=== PATIENT | male | born 1990 | race African-American/Black ===

== ENCOUNTER 2021-02-26 11:14 | Emergency (ER) | payer MEDICAID, SELFPAY ==
[2021-02-26 11:40] VITALS: BP 122/69; PULSE 90; RESP 18; TEMP 36.8; O2SAT 98; BMI 22.9
[2021-02-26 13:04] VITALS: BP 126/76; PULSE 89; RESP 16; TEMP 37; O2SAT 98
--- NOTE | 2021-02-26 13:31 | ED_ITS ---
HPI - Alcohol General Chief Complaint: ETOH/Substance Use <Stella Stanley PA-C - Last Filed: 02/26/21 13:57> Stated Complaint: requesting detox <Stella Stanley PA-C - Last Filed: 02/26/21 13:57> Time Seen by Provider: 02/26/21 13:29 <Stella Stanley PA-C - Last Filed: 02/26/21 13:57> Source: patient <Stella Stanley PA-C - Last Filed: 02/26/21 13:57> Mode of arrival: ambulatory <Stella Stanley PA-C - Last Filed: 02/26/21 13:57> Limitations: no limitations <Stella Stanley PA-C - Last Filed: 02/26/21 13:57> History of Present Illness HPI narrative: Patient is a 30-year-old male with no significant past medical who is currently being treated for pneumonia, he was diagnosed yesterday and has been taking his antibiotics, he has them with him, he is currently seeking detox from alcohol, benzodiazepines, crack and cocaine. He states he usually drinks a half a pt of either Doreen or vodka and that he last used all of these at 06:00 this morning. He states he currently is feeling fatigued and has no withdrawal symptom such as nausea, jitteriness. Denies shortness of breath, cough or fevers. <Stella Stanley PA-C - Last Filed: 02/26/21 13:57> Related Data Allergies/Adverse Reactions: Allergies Allergy/AdvReac Type Severity Reaction Status Date / Time No Known Allergies Allergy Verified 02/26/21 11:38 <Stella Stanley PA-C - Last Filed: 02/26/21 13:57> Review of Systems Review of Systems: Yes all other systems are reviewed and are negative <tSella Stanley PA-C - Last Filed: 02/26/21 13:57> PMFSH Past Medical History Medical History: Medical History Asthma <Stella Stanley PA-C - Last Filed: 02/26/21 13:57> Social History Social History: Social History Advance Directives: No Advance Directives Information Provided: No <Stella Stanley PA-C - Last Filed: 02/26/21 13:57> Physical Exam Vital Signs: Vital Signs: Last Vital Signs Temp 98.6 F 02/26/21 13:04 Pulse 89 02/26/21 13:04 Resp 16 02/26/21 13:04 BP 126/76 02/26/21 13:04 Pulse Ox 98 02/26/21 13:04 Body Mass Index 22.9 <Stella Stanley PA-C - Last Filed: 02/26/21 13:57> Vital Signs: Last Vital Signs Temp 98.6 F 02/26/21 13:04 Pulse 89 02/26/21 13:04 Resp 16 02/26/21 13:04 BP 126/76 02/26/21 13:04 Pulse Ox 98 02/26/21 13:04 Body Mass Index 22.9 <Morris Roberts MD - Last Filed: 03/23/21 20:30> Const: General: cooperative, healthy appearing, comfortable and no acute distress <Stella Stanley PA-C - Last Filed: 02/26/21 13:57> Nutritional Appearance: average body habitus <Stella Stanley PA-C - Last Filed: 02/26/21 13:57> Orientation/consciousness: patient oriented x3 <Stella Stanley PA-C - Last Filed: 02/26/21 13:57> HENMT: Head: Yes normal to inspection <Stella Stanley PA-C - Last Filed: 02/26/21 13:57> Eyes: General: appearance normal, both eyes and all related structures <Stella Stanley PA-C - Last Filed: 02/26/21 13:57> Pupils: Equal, round and reactive pupils present <Stella Stanley PA-C - Last Filed: 02/26/21 13:57> EOM: EOMs intact bilaterally <Stella Stanley PA-C - Last Filed: 02/26/21 13:57> Neck: Neck: Yes normal visual inspection, Yes full ROM and Yes supple <Stella Stanley PA-C - Last Filed: 02/26/21 13:57> Resp: Effort & Inspection: normal respiratory effort and able to speak in complete sentences <Stella Stanley PA-C - Last Filed: 02/26/21 13:57> Auscultation: clear to auscultation bilaterally <Stella Stanley PA-C - Last Filed: 02/26/21 13:57> Cardio: Rate: regular rate <Stella Stanley PA-C - Last Filed: 02/26/21 13:57> Rhythm: regular rhythm <Stella Stanley PA-C - Last Filed: 02/26/21 13:57> GI: Inspection: Yes normal to inspection <ALCIRA Almanza Last Filed: 02/26/21 13:57> Palpation (GI): Soft to palpation and nontender <Stella Stanley PA-C - Last Filed: 02/26/21 13:57> Skin: General skin exam: no rashes or lesions noted <YONIS Almanza - Last Filed: 02/26/21 13:57> Neuro: General: patient oriented x3 <Stella Stanley PA-C - Last Filed: 02/26/21 13:57> Cranial nerves: Yes Equal, round and reactive pupils present <ALCIRA Almanza Last Filed: 02/26/21 13:57> Course Course Course Narrative: Patient is a 30-year-old male with no significant past medical who is currently being treated for pneumonia, he was diagnosed yesterday and has been taking his antibiotics, he has them with him, he is currently seeking detox from alcohol, benzodiazepines, crack and cocaine. VSS. Pt is stable and cleared for detox facilty. <Stella Stanley PA-C - Last Filed: 02/26/21 13:57> I have reviewed the chart <Morris Roberts MD - Last Filed: 03/23/21 20:30> Discharge Plan Discharge Clinical Impression: Drug use disorder, Alcohol use disorder, Admitted to alcohol detoxification center <ALCIRA Almanza Last Filed: 02/26/21 13:57> Patient Disposition: Xfer Other <ALCIRA Almanza Last Filed: 02/26/21 13:57> Transfer Details: Patient to be transferred to [facility] for detox. <Stella Stanley PA-C - Last Filed: 02/26/21 13:57> Patient to be transferred to [facility] for detox. <Morris Roberts MD - Last Filed: 03/23/21 20:30> Interventions: ED Discharge Assessment Last Done: 02/26/21 17:13 <Stella Stanley PA-C - Last Filed: 02/26/21 13:57> Discharge Date/Time: 02/26/21 14:30 <Stella Stanley PA-C - Last Filed: 02/26/21 13:57>
--- NOTE | 2021-02-26 13:42 | PC.NURSE ---
RN ENTERED PT REQUESTING TO LEAVE, AGREEABLE TO SPEAK WITH APPRENTICE COSMETOLOGIST AGAIN RE: POC,
--- NOTE | 2021-02-26 13:53 | MHC.RECOVSUP ---
? Reason for consult:Continuity of care o Current location: [facility] o Identified substance use concern: ETOH, Heroin,Crack - Withdrawal - Seeking ATS (detox) - Support ? Intervention: o ATS bed search started/completed/in process o Community resources provided o Harm reduction discussion ? Plan: o o Bed search in progress to o Patient to follow up with [facility] after discharge ? Additional information: Pt. seeking detox,pt. going to [facility] detox
== END 2021-02-26 14:30 | disposition other institution (70) ==
PROVIDERS: Emergency Provider Emergency Medicine
DX: J18.9 Pneumonia, unspecified organism (principal); F14.10 Cocaine abuse, uncomplicated; F10.10 Alcohol abuse, uncomplicated; Y90.9 Presence of alcohol in blood, level not specified; Z71.41 Alcohol abuse counseling and surveillance of alcoholic; Z71.51 Drug abuse counseling and surveillance of drug abuser
CPT/HCPCS: 99283